=== PATIENT | male | born 1970 | race Caucasian/White ===

== ENCOUNTER 2024-03-14 16:11 | Emergency (ER) | payer SELFPAY ==
[~2024-03-14] VITALS: Ht 165.1 cm; Wt 86.2 kg
[2024-03-14 16:15] VITALS: BP 168/87; PULSE 73; RESP 16; TEMP 98; O2SAT 98
[2024-03-14] MEDS: KETOROLAC 30 MG/ML VIAL IM ONE (18:04)
[2024-03-14] MEDS ORDERED: IBUP-2213 PO (18:39)
== END 2024-03-14 19:21 | disposition home or self-care (01) ==
LOC: MED 16:11
DX: S42.254A Nondisplaced fracture of greater tuberosity of right humerus, initial encounter for closed fracture (principal); M25.512 Pain in left shoulder; Z79.1 Long term (current) use of non-steroidal anti-inflammatories (NSAID); V89.9XXA Person injured in unspecified vehicle accident, initial encounter; Y93.89 Activity, other specified; Y92.89 Other specified places as the place of occurrence of the external cause; Y99.8 Other external cause status
CPT/HCPCS: 73030; 96372; 99283; J1885